=== PATIENT | male | born 1965 | race Caucasian/White ===

== ENCOUNTER 2020-06-19 05:45 | Emergency (ER) | payer OTHER ==
[~2020-06-19] VITALS: Ht 175.3 cm; Wt 104.0 kg
[2020-06-19] MEDS ORDERED: TETRACAINE 0.5% OPHTH SOLUTION 4ML BOTTLE. OD ONE (06:30)
[2020-06-19] MEDS ORDERED: FLUORESCEIN 1MG EYE STRIP. OD ONE (06:30)
[2020-06-19] MEDS ORDERED: CIPR2.5D2 OS (06:45)
--- NOTE | 2020-06-19 06:45 | PHYS DOC ---
Past History Past Medical History: Other Additional Past Medical Histor: CARDIC MYPOPOTHY, PVC Past Surgical History: No Surgical History Alcohol Use: Rarely Adult General Chief Complaint Chief Complaint: EYE PROBLEMS HPI HPI Patient is a previously healthy 55-year-old male who presents to the emergency room complaining of right eye pain. Patient states that yesterday he was hit in the eye with a branch. He states that initially he felt fine but then started to feel like there is something in his eye. He states he feels like there is something moving around in his eye and his upper corner. He denies any visual changes. He states that it feels itchy and painful. He has noticed some redness to the eye. Denies any other injuries. Review of Systems Review of Systems Complete ROS is negative unless otherwise documented in HPI Current Medications Current Medications Current Medications Medications (Trade) Dose Ordered Sig/Clyde Start Time Stop Time Status Last Admin Dose Admin Fluorescein Sodium (Ful-Virgen 1mg) 1 strip 1X ONCE 06/19/20 06:30 06/19/20 06:31 Tetracaine HCl (Tetracaine) 1 drop 1X ONCE 06/19/20 06:30 06/19/20 06:31 Allergies Allergies Allergies Coded Allergies Type Severity Reaction Last Updated Verified sulfamethoxazole Allergy Severe RASH 06/19/20 Yes trimethoprim Allergy Severe RASH 06/19/20 Yes Physical Exam Physical Exam General: Awake, alert, NAD. Well Nourished, well hydrated. Cooperative HEENT: Atraumatic, EOMI, PERRL, airway patent, moist oral mucosa R eye: Pupil reactive, injected conjunctiva, no foreign bodies, defect seen in the 10 and 11 oclock positions of the eye consistent with a corneal abrasion Neck: Supple, trachea midline GI: Soft, nondistended, nontender, no masses MSK: No obvious deformities Skin: Warm, dry, intact Neuro: A&O x3, speech NL, sensory and motor grossly intact, no focal deficits Psych: Normal affect, normal mood, not suicidal or homicidal Current Patient Data Vital Signs Vital Signs Date Time Temp Pulse Resp B/P (MAP) Pulse Ox O2 Delivery O2 Flow Rate FiO2 06/19/20 05:45 98.1 91 18 139/82 (101) 96 Room Air EKG EKG [] Radiology/Procedures Radiology/Procedures [] Heart Score C/O Chest Pain: N/A Risk Factors: Risk Factors: DM, Current or recent (<one month) smoker, HTN, HLP, family history of CAD, obesity. Risk Scores: Risk Factors: DM, Current or recent (<one month) smoker, HTN, HLP, family history of CAD, obesity. Course & Med Decision Making Course & Med Decision Making Pertinent Labs and Imaging studies reviewed. (See chart for details) Patient is a 55-year-old male presents to the emergency room complaining of right eye pain and feeling like there was something in the eye. Eyelids were swept and there is no signs of foreign body. Under fluorescein patient does have a defect suggestive of a corneal abrasion. This is likely the cause of patient's pain and feeling like something is inside the eye. Patient had full resolution of pain with tetracaine drops. He will be put on Cipro drops and referred to ophthalmology. Patient's test results and vitals while in the ED were fully reviewed and discussed with the patient. Patient is stable and at this time does not need admission to the hospital. We have discussed strict return precautions and the importance of following up with their Primary Care Physician. Patient stated understanding and was given an opportunity to ask any questions. Patient is in agreement with plan. Dragon Disclaimer Dragon Disclaimer This electronic medical record was generated, in whole or in part, using a voice recognition dictation system. Departure Departure: Impression: Primary Impression: Corneal abrasion Disposition: 01 DC HOME SELF CARE/HOMELESS Condition: STABLE Referrals: MO AGUILAR MD (PCP) ANGELES RUEDA DO Patient Instructions: Eye - Corneal Abrasion Scripts Ciprofloxacin Hcl (CIPROFLOXACIN HCL) 2.5 Ml Drops 1 DROP OS QID for corneal abrasion for 7 Days, #5 ML 0 Refills Prov: ALAN HARRELL MD 06/19/20 ALAN HARRELL MD Jun 19, 2020 06:45
[2020-06-19 06:55] VITALS: BP 122/86
== END 2020-06-19 07:06 | disposition home or self-care (01) ==
LOC: ER 05:45
DX: S05.01XA Injury of conjunctiva and corneal abrasion without foreign body, right eye, initial encounter (principal); Z88.1 Allergy status to other antibiotic agents; Z88.2 Allergy status to sulfonamides; X58.XXXA Exposure to other specified factors, initial encounter; Y93.89 Activity, other specified; Y92.89 Other specified places as the place of occurrence of the external cause; Y99.8 Other external cause status
CPT/HCPCS: 99283